=== PATIENT | male | born 1950 | race Caucasian/White ===

== ENCOUNTER 2016-08-14 14:20 | Emergency (ER) | payer MEDICARE, OTHER ==
--- NOTE | 2016-08-14 14:26 | ED Physician Documentation ---
General Adult - HISTORIAN Historian: patient - HPI Stated Complaint: abd pain Chief Complaint: General Adult Onset: hours Further Comments: yes (Pt is a 65 yo male with hx Crohn's disease who has had intermittent abd pain x 1 day. Sx began after eating a ham salad sandwich at a convenience store yesterday. Pt has had n/v x 3. Pt has had normal bm earlier today, but has developed abd distention. Pt has hx bowel resection and ileostomy (reversed) and had had ulcers at ostomy site.) - ROS CONST: no problems EYES/ENT: none CVS/RESP: none GI/: abdominal pain, vomiting, nausea MS/SKIN/LYMPH: none - PAST HX Past History: other (thyroid d/o; Crohn's dz; ) Surgeries/Procedures: other (bowel resection with ileostomy (reversed) and ulcers at ostomy site.) Allergies/Adverse Reactions: Allergies Allergy/AdvReac Type Severity Reaction Status Date / Time No Known Allergies Allergy Verified 08/14/16 14:37 Home Medications: Ambulatory Orders Medication Instructions Recorded Cyclobenzaprine HCl [Flexeril] 10 mg PO QD 08/14/16 Diclofenac Sodium [Voltaren] 75 mg PO BID 08/14/16 Levothyroxine Sodium [Synthroid] 50 mcg PO DAILY 08/14/16 Mesalamine [Apriso] 0.375 gm PO DAILY 08/14/16 Omeprazole [Omeprazole] 20 mg PO BID 08/14/16 Potassium Chloride [Klor-Con 10] 10 meq PO DAILY 08/14/16 Terbinafine HCl [Terbinafine HCl] 250 mg PO DAILY 08/14/16 azaTHIOprine [Azasan] 50 mg PO DAILY 08/14/16 - SOCIAL HX Smoking History: cigarettes - FAMILY HX Family History: No - REVIEWED ASSESSMENTS Nursing Assessment Reviewed: Yes Vitals Reviewed: Yes Progress - Progress Progress: NS 500 cc IVF Zofran 4 mg IV Dilaudid 1 mg IV Dilaudid 1 mg IV Dilaudid 0.5 mg IV KUB: Slightly dilated small bowel loops in the midabdomen, suspicious for partial mechanical small bowel obstruction. No gastric or colonic dilatation. CT abd/pelvis: Partial right colectomy. A distal small bowel obstruction is observed at the level of an ileocolic anastomosis which is present in the most caudal of approximately 3 ventral hernias. Transfer to [facility], Dr. Gonzalez. General Adult Physical Exam - PHYSICAL EXAM GENERAL APPEARANCE: moderate distress EENT: pharynx normal NECK: normal inspection, supple RESPIRATORY: no resp distress, chest non-tender, breath sounds normal CVS: reg rate & rhythm, heart sounds normal ABDOMEN: soft, decreased BS, other (abd distention) BACK: normal inspection, no CVA tenderness SKIN: warm/dry, normal color EXTREMITIES: non-tender, normal range of motion, no evidence of injury NEURO: oriented X3, motor nml, sensation nml Discharge Clincal Impression: Small bowel obstruction Referrals: Alexandra Barrow, [facility] [Primary Care Provider] - Home Medications: Ambulatory Orders Cyclobenzaprine HCl [Flexeril] 10 mg PO QD 08/14/16 Diclofenac Sodium [Voltaren] 75 mg PO BID 08/14/16 Levothyroxine Sodium [Synthroid] 50 mcg PO DAILY 08/14/16 Mesalamine [Apriso] 0.375 gm PO DAILY 08/14/16 Omeprazole [Omeprazole] 20 mg PO BID 08/14/16 Potassium Chloride [Klor-Con 10] 10 meq PO DAILY 08/14/16 Terbinafine HCl [Terbinafine HCl] 250 mg PO DAILY 08/14/16 azaTHIOprine [Azasan] 50 mg PO DAILY 08/14/16 Condition: Stable Disposition: XFER SHT-TRM HOSP Decision to Admit: NO Decision Time: 19:27
[2016-08-14] MEDS: 0.9 % SODIUM CHLORIDE 500 ML IV ONE (14:48)
[2016-08-14] MEDS: ONDANSETRON HCL/PF 4 MG/ 2ML VIAL IVP ONE (14:50)
[2016-08-14] MEDS: HYDROmorphone HCL/PF 1 MG/ML DISP.SYRIN IVP ONE ×4 (14:53→20:15)
[2016-08-14 15:21] LABS: MEAN CORPUSCULAR HEMOGLOBIN 31.9 pg (28.0-34.0)
[2016-08-14 15:27] LABS: eGFR (African) > 60; eGFR (Non-African) > 60
[2016-08-14 21:47] VITALS: BP 125/76
--- NOTE | 2016-08-15 01:59 | Diagnostic Imaging Report ---
Report Submission Date: Aug 14, 2016 3:57:58 PM [employer] Patient ~ Study Name: JENNIFER CASTRO ~ Date: Aug 14, 2016 3:37:20 PM [employer] ~ Modality Type: CR Gender: M ~ Description: ABDOMEN : 48 ~ Institution: [facility] Physician: ELLE TAYLOR ~ ~ ~ ~ AP view of the abdomen Clinical history: Abdominal distention, history of Crohn's disease Slightly dilated small bowel loops in the midabdomen, suspicious for partial mechanical small bowel obstruction . No gastric or colonic dilatation . Impression: Questionable for partial small bowel obstruction ~ Electronically signed on Aug 14, 2016 3:57:58 PM [employer] by: Murali JERONIMO
--- NOTE | 2016-08-15 02:01 | Diagnostic Imaging Report ---
Report Submission Date: Aug 14, 2016 6:58:29 PM STARCHMAKER Patient ~ Study Name: JENNIFER CASTRO ~ Date: Aug 14, 2016 6:28:33 PM STARCHMAKER ~ Modality Type: CT Gender: M ~ Description: CT ABD & PELVIS W/O CO : 48 ~ Institution: [facility] Physician: ELLE TAYLOR ~ ~ ~ ~ Computed tomography of the abdomen and pelvis without contrast HISTORY: ~ Abdominal pain and possible small bowel obstruction on radiographs FINDINGS: ~ Transverse abdomen and pelvis sections are obtained after oral contrast only. ~ Atleast 3 ventral hernias are present containing portions of the transverse and right colon. ~Gallstones are present without gallbladder wall thickening. ~ Surgical clips are observed adjacent to the duodenum. ~There is mild mural thickening of the distal 2nd duodenum. ~The liver, spleen, pancreas, adrenals, and kidneys are unremarkable except for a few pancreatic head calcifications. ~ Small bowel is mildly to moderately distended. ~The colon is normal in caliber. ~The transition point appears to be the ileocecal valve at the level of the most caudad ventral hernia which contains an ileocolic anastomosis and proximal right colon. ~ Pelvic sections reveal mild prostate enlargement. ~The urinary bladder and seminal vesicles are unremarkable. ~The sigmoid colon and rectum are within normal limits. IMPRESSION: ~ Partial right colectomy. ~A distal small bowel obstruction is observed at the level of an ileocolic anastomosis which is present in the most caudal of approximately 3 ventral hernias. Mural thickening of the 2nd duodenum with adjacent surgical clips. ~This may represent acute duodenal inflammation or postoperative change. ~ Cholelithiasis. ~ Electronically signed on Aug 14, 2016 6:58:29 PM STARCHMAKER by: Joon JERONIMO
[2016-08-15 06:42] LABS: MONOCYTES % 2 % (0-11); SEGMENTED NEUTROPHILS % 91 % (39-79)
== END 2016-08-14 20:20 | disposition short-term general hospital (02) ==
LOC: ED 14:20
DX: K56.60 Unspecified intestinal obstruction (principal)
CPT/HCPCS: 74000; 74150; 80053; 82150; 85025; J1170; J2405; J7060; 96374; 96375; 96376; 99283; 99284; S1016